=== PATIENT | male | born 1980 | race Caucasian/White ===

== ENCOUNTER 2018-09-21 15:13 | Emergency (ER) | payer OTHER ==
[~2018-09-21] VITALS: Ht 177.8 cm; Wt 149.7 kg
[~2018-09-21 15:13] MED LIST: FLEXERIL PO
[2018-09-21] MEDS ORDERED: TYLENOL EXTRA500 MG PO (15:24)
[2018-09-21] MEDS ORDERED: IBUPROFEN 600600 M1 PO (15:24)
[2018-09-21 16:31] LABS: URINE BILIRUBIN NEGATIVE (Negative); URINE BLOOD NEGATIVE (Negative); URINE CLARITY CLEAR; URINE COLOR YELLOW; URINE GLUCOSE-RANDOM* NEGATIVE (Negative); URINE KETONES NEGATIVE (Negative); URINE LEUKOCYTES-REFLEX NEGATIVE (Negative); URINE NITRITE-REFLEX NEGATIVE (Negative); URINE PROTEIN (DIPSTICK) NEGATIVE (Negative); URINE UROBILINOGEN 0.2 E.U./dl (0.2-1.0)
[2018-09-21] MEDS ORDERED: TIZANIDINE HCL4 MG PO (16:57)
== END 2018-09-21 17:40 | disposition home or self-care (01) ==
LOC: ER 15:13
PROVIDERS: Nurse Practitioner
DX: M54.5 Low back pain (principal); G89.29 Other chronic pain; Z88.6 Allergy status to analgesic agent